=== PATIENT | female | born 1940 | race Asian ===

== ENCOUNTER 2018-11-24 18:31 | Emergency (ER) | payer OTHER, MEDICAID ==
[~2018-11-24] VITALS: Ht 160 cm; Wt 54.4 kg
[2018-11-24 18:38] VITALS: BP_SYST 139
--- NOTE | 2018-11-24 18:38 | NUR ---
Patient to ER bed 02 to gown for evaluation. Side rails up. Report given to RACHANA Blanco
--- NOTE | 2018-11-24 18:40 | NUR ---
Patient was bib by paramedics s/p a fall at home. Pt reported havinf 4 teeth extracted yesterday, fall this am. Pt went to her PMD whos stated that she has a skull fracture however, sent her home. Pt is a and X4. Has difficullty speaking d/t facil and chin swelling and bruising. VSS at the moment.
--- NOTE | 2018-11-24 18:48 | NUR ---
ER at bedside examining patient.
--- NOTE | 2018-11-24 18:56 | NUR ---
Inserted a 20g IV on the LAC using aseptic technique. Patient toelrated well.
[2018-11-24] MEDS ORDERED: KETOROLAC TROMETHAMINE 30 MG VIAL IVP ONE (19:00)
[2018-11-24] MEDS ORDERED: NACL 0.9% 1,000 ML IV ONE (19:00)
[2018-11-24 19:24] LABS: ANION GAP 8 (5-15); CALCIUM 9.3 mg/dL (8.4-11.0); CHLORIDE 100 mmol/L (98-107); CREATININE 0.61 mg/dL (0.55-1.30); GLUCOSE 144 mg/dL (70-99); POTASSIUM 3.7 mmol/L (3.5-5.1); SODIUM SERUM 137 mmol/L (136-145); UREA NITROGEN, BLOOD 26 mg/dL (8-21)
--- NOTE | 2018-11-24 19:31 | NUR ---
Unable to do medicaton reconcilation due to pt unable to talk
[2018-11-24 19:32] LABS: BASOPHILS % (AUTO) 0.3 % (0.0-2.0); HEMATOCRIT 36.9 % (36-48); HEMOGLOBIN 12.1 g/dL (12.0-16.0); LYMPHOCYTES # (AUTO) 0.4 K/uL (1.0-5.5); LYMPHOCYTES % (AUTO) 3.2 % (20.5-51.5); MEAN CORPUSCULAR HEMOGLOBIN 29 pg (27-31); MEAN CORPUSCULAR HGB CONC 33 % (32-36); MEAN CORPUSCULAR VOLUME 88 fL (79.0-98.0); MONOCYTES # (AUTO) 0.7 K/uL (0.0-1.0); MONOCYTES % (AUTO) 6.1 % (1.7-9.3); NEUTROPHILS # (AUTO) 10.9 K/uL (1.8-7.7); NEUTROPHILS % (AUTO) 90.4 % (40.0-70.0); PLATELET COUNT (AUTO) 150 K/uL (130-430); RED BLOOD CELL COUNT(AUTO) 4.17 MIL/uL (4.2-6.2); RED CELL DISTRIBUTION WIDTH 13.6 % (9.0-15.0)
[2018-11-24 19:36] LABS: ALANINE AMINOTRANSFERASE 61 U/L (12-78); ALBUMIN 3.6 g/dL (3.4-4.8); ASPARTATE AMINOTRANSFERASE 71 U/L (10-37); TOTAL BILIRUBIN 0.8 mg/dL (0.0-1.0)
--- NOTE | 2018-11-24 19:49 | NUR ---
Pt returned from radiology.
--- NOTE | 2018-11-24 20:00 | NUR ---
Per daughter, pt might have experienced a seizure last night which is why she bit her tongue. ER made aware.
--- NOTE | 2018-11-24 20:23 | NUR ---
Dr. Dillon spoke to Dr. Rasmussen who said that pt will be accepted at [facility] and they will call back with info.
--- NOTE | 2018-11-24 21:10 | NUR ---
PT went to radiology via [facility]. Tolerated well. Will cont. to monitor.
--- NOTE | 2018-11-24 23:00 | NUR ---
PT signed transfer form. placed in chart.
--- NOTE | 2018-11-24 23:05 | NUR ---
Patient to be transferred to [facility]. Is being transferred due to higher level of care. Receiving facility has accepting physician and available space. ER physician has signed transfer form. Patient or responsible constitution party has agreed to transfer and signed form. Patient belongings inventoried and will be sent with patient. Copy of nursing notes, lab reports, EKG, Physicians Orders and X-rays to be sent with patient. Report called to at receiving facility. Receiving physician is Dr. Lorene Marroquin. ambulance service has been called for transfer. ETA is [id number].
--- NOTE | 2018-11-25 00:14 | NUR ---
Pt transferred to [facility] via [facility]. Tolerated well. IV patent and no signs of infiltration.
[2018-11-25 00:15] VITALS: BP_SYST 147
== END 2018-11-25 00:14 | disposition critical access hospital (66) ==
LOC: SED 18:31
DX: S00.83XA Contusion of other part of head, initial encounter (principal); W19.XXXA Unspecified fall, initial encounter; Y93.89 Activity, other specified; Y92.89 Other specified places as the place of occurrence of the external cause; Y99.8 Other external cause status
CPT/HCPCS: 36415; 70450; 70486; 71045; 80053; 85025; 96374; 99285; J1885; J7030